=== PATIENT | female | born 1970 | race Caucasian/White ===

== ENCOUNTER 2016-08-16 13:55 | Inpatient (IN) ==
[2016-08-16] MEDS ORDERED: Ondansetron 4 MG/2 ML VIAL IVP ONE (14:29)
[2016-08-16] MEDS ORDERED: 0.9 % Sodium Chloride 1,000 ML IVC ONE ×3 (14:29→19:02)
[2016-08-16] MEDS ORDERED: Acetaminophen 325 MG TABLET PO ONE (14:30)
--- NOTE | 2016-08-16 14:35 | Emergency Department Note ---
Disposition Clinical Impression: ALFA (acute kidney injury) Intractable nausea and vomiting Qualifiers: Vomiting type: unspecified Qualified Code(s): R11.2 - Nausea with vomiting, unspecified Disposition: Admitted As Inpatient Condition: Fair Referrals: NO,PCP [Primary Care Provider] - Forms: Work/School Release, ED Satisfaction Letter Time of Disposition: 17:40 General Adult HPI - General Chief complaint: ED Abdominal Pain Stated complaint: N/V X3 days, abdominal pain Time Seen by Provider: 08/16/16 14:03 Source: patient Limitations: no limitations Nursing Notes Reviewed: Yes Vital Signs Reviewed: Yes - History of Present Illness HPI Narrative: Patient is a 46-year-old female who presents to [facility] ED with multiple complaints. States she has had initially urinary symptoms last weekend and then started having persistent nausea vomiting early this week. States she has been unable to keep anything down. Denies any fevers, chills. Patient did have one episode of diarrhea a few days ago but this was preceded by her taking Ex-Lax. Patient's abdominal pain is in the epigastric region from her vomiting as well as in the lower abdomen. States she does have some chest pain currently at rest along with some shortness of breath. Past medical history significant for hyperlipidemia, hypertension, and CAD. Onset (ago): day(s) Location: chest, abdomen Radiation: non-radiation Pain Severity: severe Pain Scale: 8 Consistency: constant Improves with: nothing Worsens with: nothing Associated symptoms: Reports: chest pain, headaches, nausea/vomiting, shortness of breath Treatments Prior to Arrival: none - Related Data Home Medications Medication Instructions Recorded Confirmed Amitriptyline [Elavil] 10 mg PO HS 06/16/15 06/16/15 Aspirin [Adult Low Dose Aspirin EC] 81 mg PO DAILY 06/16/15 06/16/15 Carvedilol [Coreg] 12.5 mg PO BID 06/16/15 06/16/15 Furosemide [Lasix] 10 mg PO BID 06/16/15 06/16/15 Potassium Chloride [K-Tab ER] 20 meq PO BID 06/16/15 06/16/15 SUMAtriptan Succinate [Imitrex] 100 mg PO AD PRN 06/16/15 06/16/15 Simvastatin [Zocor] 40 mg PO DAILY 06/16/15 06/16/15 Topiramate [Topamax] 50 mg PO HS 06/16/15 06/16/15 Previous Rx's Medication Instructions Recorded Nicotine Patch [Nicoderm] 7 mg TD DAILY #30 patch.td24 06/17/15 Omeprazole [PriLOSEC] 20 mg PO DAILY@0630 #30 capsule 06/17/15 Cyclobenzaprine [Flexeril] 10 mg PO BID PRN #20 tablet 06/06/16 Allergies Allergy/AdvReac Type Severity Reaction Status Date / Time morphine Allergy Hives Verified 01/05/15 06:09 Penicillins [PCN] Allergy Hives Verified 01/05/15 06:09 All systems ED: reviewed and negative except as stated. Past Medical History - Past Medical History Attestation: Yes The following information was validated with the patient. 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 - Social History Smoking Status: Light tobacco smoker Smokeless Tobacco Status: No Alcohol use: Reports: none Drug use: Reports: none Physical Exam - General Limitations: no limitations General appearance: alert - Head Head exam: atraumatic, normocephalic, normal inspection - Eye Eye exam: Present: normal appearance, PERRL, EOMI - ENT ENT exam: normal exam, normal oropharynx, mucous membranes moist - Neck Neck exam: Present: normal inspection, full ROM, trachea midline - Chest Chest inspection: Present: normal inspection, symmetric chest wall rise - Respiratory Respiratory exam: Present: normal lung sounds bilaterally - Cardiovascular Cardiovascular exam: Present: regular rate, normal rhythm, normal heart sounds - Abdominal Exam Abdominal exam: Present: soft, tenderness, normal bowel sounds. Absent: distention, guarding, rebound, rigidity Abdominal tenderness: Present: epigastrium, mild - Extremities Exam Extremities exam: Present: normal inspection, full ROM. Absent: tenderness, pedal edema - Back Exam Back exam: Present: normal inspection, full ROM. Absent: tenderness - Neurological Exam Neurological exam: Present: alert - Psychiatric Psychiatric exam: Present: normal affect, normal mood - Skin Skin exam: Present: warm, dry, intact, normal color Course Course Narrative: Patient seen and examined. Chest pain and abdominal pain along with three-day history of nausea and vomiting. We will order a cardiopulmonary/GI workup. Patient is morbidly obese and has history of CAD. Place an IV and give 1 L fluid bolus and IV Zofran to help with her nausea. Patient also has a headache that has been constant. We will give her Tylenol for the headache. - Reevaluation(s) Reevaluation #1: Patient's lab work does show elevated creatinine of 1.57. This is double her previous creatinine. Patient has received 2 IV fluid boluses as well as doses of Zofran, Phenergan 2. She is still feeling poorly. Unable to tolerate oral liquids. At this time we will go ahead and admit her for continued IV hydration. I spoke with hospitalist Dr. Ferrell who has accepted patient for admission. Time: 17:39 Vital Signs Temperature 98.2 F 08/16/16 13:56 Pulse Rate 79 08/16/16 13:56 Respiratory Rate 14 08/16/16 13:56 Blood Pressure 124/88 08/16/16 13:56 O2 Sat by Pulse Oximetry 97 08/16/16 13:56 Temperature 98.2 F 08/16/16 13:56 Pulse Rate 104 08/16/16 16:40 Respiratory Rate 16 08/16/16 16:40 Blood Pressure 109/76 08/16/16 16:40 O2 Sat by Pulse Oximetry 95 08/16/16 16:40 Oxygen Delivery Oxygen Delivery Room Air Medical Decision Making - Medical Records Medical records reviewed: Yes I reviewed the patient's medical records. - Lab Data Lab results reviewed: Yes I reviewed the patient's lab results. Result diagrams: 08/16/16 14:58 08/16/16 14:58 Lab Results 08/16/16 08/16/16 08/16/16 Range/Units 14:58 14:58 14:58 WBC 14.7 H (4.3-11.1) K/mcL RBC 4.72 (3.82-4.97) M/mcL Hgb 15.0 (11.5-15.4) g/dL Hct 45.5 H (35.3-44.9) % MCV 96.4 (83.0-100.0) fL MCH 31.8 (28.0-33.3) pg MCHC 33.0 (31.6-35.5) g/dL RDW 13.4 (11.5-14.5) % Plt Count 281 (140-400) K/mcL MPV 9.9 (9.4-12.4) fL Immature Gran % 0.5 (0-4) % Seg Neutrophils % 82.7 % Lymphocytes % 7.9 % Monocytes % 8.7 % Eosinophils % 0.1 % Basophils % 0.1 % Neutrophils # 12.1 H (1.6-8.9) K/mcL Lymphocytes # 1.2 (0.6-4.6) K/mcL Monocytes # 1.3 (0.0-1.3) K/mcL Eosinophils # 0.0 (0.0-0.6) K/mcL Basophils # 0.0 (0.0-0.2) K/mcL Sodium 134 L (136-145) mEq/L Potassium 3.5 (3.5-4.5) mEq/L Chloride 95 L (98-109) mEq/L Carbon Dioxide 26 (19-29) mEq/L BUN 15 (7-20) mg/dL Creatinine 1.57 H (0.57-1.11) mg/dL Est GFR ( Amer) 43 L (> 60) Est GFR (Non-Af Amer) 36 L (> 60) BUN/Creatinine Ratio 10 (6-26) Glucose 117 H (70-99) mg/dL Calculated Osmolality 280 (280-300) Calcium 9.3 (8.6-10.8) mg/dL Total Bilirubin 1.5 H (0.2-1.2) mg/dL Direct Bilirubin 0.8 H (0.0-0.5) mg/dL Indirect Bilirubin 0.7 (0.0-1.2) mg/dL AST 12 (5-34) Units/L ALT 11 (0-55) Units/L Alkaline Phosphatase 129 H (38-126) Units/L Troponin I 0.00 (0-0.03) ng/mL Serum Total Protein 7.7 (6.0-8.3) g/dL Albumin 2.9 L (3.5-5.0) g/dL Globulin 4.8 H (2.4-3.5) g/dL Albumin/Globulin Ratio 0.6 L (1.1-2.2) Lipase 5 L (8-78) Units/L Urine Color (Yellow) Urine Clarity (Clear) Urine pH (5.0-8.0) pH Units Ur Specific Garrison (1.010-1.025) Urine Protein (Neg-Trace) mg/dL Urine Glucose (UA) (Normal) mg/dL Urine Ketones (Negative) mg/dL Urine Blood (Negative) Urine Nitrite (Negative) Urine Bilirubin (Negative) Urine Urobilinogen (Normal) mg/dL Ur Leukocyte Esterase (Negative) Urine Microscopic RBC (0-3) per hpf Urine Microscopic WBC (0-3) per hpf Ur Squamous Epith Cells (None-Few) per lpf Amorphous Sediment (Few) Urine Bacteria (None-Few) per hpf Hyaline Casts (None-Few) per lpf Urine Yeast Ur Culture Indicated? (NO) Urine Test (Negative) 08/16/16 08/16/16 Range/Units 16:53 16:53 WBC (4.3-11.1) K/mcL RBC (3.82-4.97) M/mcL Hgb (11.5-15.4) g/dL Hct (35.3-44.9) % MCV (83.0-100.0) fL MCH (28.0-33.3) pg MCHC (31.6-35.5) g/dL RDW (11.5-14.5) % Plt Count (140-400) K/mcL MPV (9.4-12.4) fL Immature Gran % (0-4) % Seg Neutrophils % % Lymphocytes % % Monocytes % % Eosinophils % % Basophils % % Neutrophils # (1.6-8.9) K/mcL Lymphocytes # (0.6-4.6) K/mcL Monocytes # (0.0-1.3) K/mcL Eosinophils # (0.0-0.6) K/mcL Basophils # (0.0-0.2) K/mcL Sodium (136-145) mEq/L Potassium (3.5-4.5) mEq/L Chloride (98-109) mEq/L Carbon Dioxide (19-29) mEq/L BUN (7-20) mg/dL Creatinine (0.57-1.11) mg/dL Est GFR ( Amer) (> 60) Est GFR (Non-Af Amer) (> 60) BUN/Creatinine Ratio (6-26) Glucose (70-99) mg/dL Calculated Osmolality (280-300) Calcium (8.6-10.8) mg/dL Total Bilirubin (0.2-1.2) mg/dL Direct Bilirubin (0.0-0.5) mg/dL Indirect Bilirubin (0.0-1.2) mg/dL AST (5-34) Units/L ALT (0-55) Units/L Alkaline Phosphatase (38-126) Units/L Troponin I (0-0.03) ng/mL Serum Total Protein (6.0-8.3) g/dL Albumin (3.5-5.0) g/dL Globulin (2.4-3.5) g/dL Albumin/Globulin Ratio (1.1-2.2) Lipase (8-78) Units/L Urine Color Dark Yellow (Yellow) Urine Clarity Turbid A (Clear) Urine pH 6.0 (5.0-8.0) pH Units Ur Specific Garrison 1.018 (1.010-1.025) Urine Protein 100 H (Neg-Trace) mg/dL Urine Glucose (UA) Normal (Normal) mg/dL Urine Ketones Trace H (Negative) mg/dL Urine Blood Large H (Negative) Urine Nitrite Positive A (Negative) Urine Bilirubin Small H (Negative) Urine Urobilinogen 2.0 H (Normal) mg/dL Ur Leukocyte Esterase Large H (Negative) Urine Microscopic RBC 30-50 H (0-3) per hpf Urine Microscopic WBC TNTC H (0-3) per hpf Ur Squamous Epith Cells Moderate H (None-Few) per lpf Amorphous Sediment Few (Few) Urine Bacteria Many H (None-Few) per hpf Hyaline Casts Few (None-Few) per lpf Urine Yeast Test Not Performed Ur Culture Indicated? YES A (NO) Urine Test Negative (Negative) - Radiology Data Radiology results reviewed: Yes I reviewed the patient's radiology results. - EKG Data EKG #1 EKG attestation: Yes I reviewed and interpreted this EKG. EKG results narrative: EKG done at 1434 shows sinus tachycardia with a rate of 120 beats per minute. No acute ST elevation or depression. Normal axis. Unchanged from prior EKG done 06/16/2015. Attestation Statement - Attestation Attestation: I examined this patient and my medical decision-making was reviewed with the PROJECT CONTROL MANAGER/PA/Advanced Practice Nurse/Resident Physician. I agree with the documented findings, disposition and treatment plan as described except to the extent set forth below. Patient with some signs of dehydration on clinical exam as well as with lab work. I have ordered some IV fluids. She will need at least 2 L of fluid here in the ER. We will reevaluate at that time to see how she is feeling.
[2016-08-16] MEDS ORDERED: Ipratropium/Albuterol Neb 3 ML IH ONE (14:44)
--- NOTE | 2016-08-16 14:46 | Emergency Department Note ---
START Narrative - START START: I examined this patient and my medical decision-making was reviewed with the SALES UTILITY REPRESENTATIVE/PA/Advanced Practice Nurse/Resident Physician. I agree with the documented findings, disposition and treatment plan as described except to the extent set forth below.
[2016-08-16 15:04] LABS: Basophils % 0.1 %; Eosinophils % 0.1 %; Hematocrit 45.5 % (35.3-44.9); Immature Granulocytes % 0.5 % (0-4); Lymphocytes # 1.2 K/mcL (0.6-4.6); Lymphocytes % 7.9 %; Mean Corpuscular Hemoglobin 31.8 pg (28.0-33.3); Mean Corpuscular Volume 96.4 fL (83.0-100.0); Mean Platelet Volume 9.9 fL (9.4-12.4); Monocytes # 1.3 K/mcL (0.0-1.3); Monocytes % 8.7 %; Neutrophils # 12.1 K/mcL (1.6-8.9); Platelet Count 281 K/mcL (140-400); Red Blood Count 4.72 M/mcL (3.82-4.97); Red Cell Distribution Width 13.4 % (11.5-14.5); Segmented Neutrophils % 82.7 %
[2016-08-16 15:18] LABS: Albumin 2.9 g/dL (3.5-5.0); Albumin/Globulin Ratio 0.6 (1.1-2.2); Bilirubin,Direct 0.8 mg/dL (0.0-0.5); Bilirubin,Indirect 0.7 mg/dL (0.0-1.2); Bilirubin,Total 1.5 mg/dL (0.2-1.2); Calcium 9.3 mg/dL (8.6-10.8); Globulin 4.8 g/dL (2.4-3.5); Potassium 3.5 mEq/L (3.5-4.5); Total Protein 7.7 g/dL (6.0-8.3)
[2016-08-16] MEDS ORDERED: *HR* Promethazine 25 MG/ML VIAL IVP ONE (15:28)
[2016-08-16] MEDS ORDERED: *HR* HYDROcodone/Acet 5/325 mg TABLET PO ONE (15:28)
[2016-08-16 17:05] LABS: Bilirubin,Urine Small (Negative); Blood,Urine Large (Negative); Clarity,Urine Turbid (Clear); Color,Urine Dark Yellow (Yellow); Glucose,Urine (UA) Normal (Normal); Ketones,Urine Trace mg/dL (Negative); Leukocyte Esterase,Urine Large (Negative); Nitrite,Urine Positive (Negative); Protein,Urine 100 mg/dL (Neg-Trace); Specific Gravity,Urine 1.018 (1.010-1.025)
[2016-08-16 17:08] LABS: Bacteria,Urine Many per hpf (None-Few); Hyaline Casts,Urine Few per lpf (None-Few); WBC,Urine TNTC per hpf (0-3)
[2016-08-16 17:17] LABS: Squamous Epithelial Cell,Urine Moderate per lpf (None-Few)
[2016-08-16 17:18] LABS: RBC,Urine 30-50 per hpf (0-3)
[2016-08-16 17:19] LABS: Amorphous Sediment,Urine Few (Few)
[2016-08-16] MEDS ORDERED: 0.9 % Sodium Chloride 1,000 ML ONE (18:37)
[2016-08-16] MEDS ORDERED: Ondansetron 4 MG/2 ML VIAL IVP PRN (18:50)
[2016-08-16] MEDS ORDERED: *HR* Promethazine 25 MG/ML VIAL IVP PRN (18:50)
[2016-08-16] MEDS ORDERED: *HR* HYDROcodone/Acet 7.5/325 mg TABLET PO PRN (18:53)
[2016-08-16] MEDS ORDERED: Naloxone 0.4 MG/ML INJ IVP PRN (18:54)
[2016-08-16] MEDS ORDERED: Levofloxacin 750 MG/150 ML 750 MG/150 ML BAG IVPB SCH (19:00)
[2016-08-16] MEDS ORDERED: Acetaminophen 325 MG TABLET PO PRN (19:08)
--- NOTE | 2016-08-16 19:15 | Internal Med History&Physical ---
Date of Encounter: 08/16/16 Time of Encounter: 18:40 Assessment and Plan (1) Sepsis Current visit: Yes Status: Acute Source appears to be secondary to UTI with suspected pyelonephritis. CT abdomen and pelvis is ordered and pending. Patient states that her blood pressure normally runs in the 200s systolic, thus her systolic BP which is currently running in the 90s despite fluid resuscitation is very concerning. Patient also found to be tachycardic with heart rate in the 1 teens and a white count of 14.7. We will continue to provide fluid resuscitation and order Levaquin 750 every 24 hours as the patient is allergic to penicillins. Will follow up urine and blood cultures. Check a lactic acid as this was not performed in the ED. Qualifiers: Sepsis type: sepsis due to unspecified organism Qualified Code(s): A41.9 - Sepsis, unspecified organism (2) ALFA (acute kidney injury) Current visit: Yes Status: Acute Patient's baseline renal function is approximately 0.7. Today is 1.5 and correlates with intractable nausea and vomiting and septic picture. Continue fluid resuscitation and recheck renal function the morning. (3) UTI (urinary tract infection) Current visit: Yes Status: Acute Although the specimen appears to be contaminated, given markedly elevated WBCs, positive nitrate and leukocyte esterase, will treat with Levaquin as mentioned above. CT scan pending to evaluate for possible pyelonephritis. Qualifiers: Urinary tract infection type: acute pyelonephritis Qualified Code(s): N10 - Acute pyelonephritis (4) Intractable nausea and vomiting Current visit: Yes Status: Acute This appears to have resolved as patient has been able to tolerate by mouth medications in the ED. This is likely secondary to sepsis with UTI. Despite elevated bilirubin, patient has no right upper quadrant tenderness. We will continue to monitor LFTs. Continue Zofran and Phenergan as needed for nausea. Qualifiers: Vomiting type: unspecified Qualified Code(s): R11.2 - Nausea with vomiting , unspecified (5) Chest pain of unknown etiology Current visit: No Status: Acute Patient states that she developed substernal/epigastric chest pressure. She relates this to the intractable nausea and vomiting. The pain was reproducible upon palpation. EKG revealed nonspecific ischemic changes. Will trend troponins , but will not order any further cardiac testing given patient's septic picture at this time. Will defer such testing until patient is no longer septic. Internal Medicine - H&P: HPI Chief complaint: Abdominal pain, nausea and vomiting, burning on urination Admitted From: Home History of present illness: Ms. Chester is a 46 year old female with past medical history chronic headaches , hyperlipidemia, tobacco abuse, CAD who presents to [facility] with complaints of intractable nausea and vomiting, dysuria, abdominal pain. Patient's symptoms started extremity is ago; she developed a subjective fever followed by profuse sweating on days 1 and 2 but this has resolved. She subsequently developed burning on urination without the presence of foul- smelling urine or cloudy urine. She has suprapubic discomfort. She has not been able to tolerate by mouth in the last 4 days and has been vomiting clear bilious type fluid many times per day. She came in because she knew she was dehydrated. No hematemesis or coffee-ground emesis. No mention of diarrhea. No unusual vaginal discharge and last menstrual period has been over a year. She claims that she does have a headache rated 10 out of 10, but admits that this is constant and has been going on for many months. She is admits to photophobia and phonophobia. She claims that she always has neck pain due to her degenerative disc disease. Past Med Surg Social Fam HX - Past Medical History Source: patient Medical history: coronary artery disease, CVA, hyperlipidemia, hypertension, migraine, myocardial infarction, TIA Psychiatric history: no psych history - Past Surgical History Surgical History: appendectomy, cholecystectomy, other - Social History Smoking Status: Light tobacco smoker Smokeless Tobacco Status: No Alcohol use: none Drug use: none - Family History Mother Living Status: Still Living Hx Family Cardiac Disorders: No Hx Family Respiratory Disorders: No Hx Family Cancer: No Hx Family GI Disorders: No Hx Family Genitourinary Disorders: No Hx Family Endocrine Disorder: No Hx Family Musculoskeletal Disorders: Yes (MS) Hx Family Neuromuscular Disorders: No Hx Family Neurologic Disorders: No Hx Family HEENT Disorders: No Hx Family Autoimmune Disorders: No Hx Family Reproductive Disorders: No Hx Family Psychosocial Disorders: No Hx Family Medical Disorders: No Father Living Status: Age at : 48 Cause of : [place] Hx Family Cardiac Disorders: Yes Hx Family Respiratory Disorders: Yes Hx Family Cancer: No Hx Family GI Disorders: No Hx Family Genitourinary Disorders: No Hx Family Endocrine Disorder: No Hx Family Musculoskeletal Disorders: No Hx Family Neuromuscular Disorders: No Hx Family Neurologic Disorders: No Hx Family HEENT Disorders: No Hx Family Autoimmune Disorders: No Hx Family Reproductive Disorders: No Hx Family Psychosocial Disorders: No Hx Family Medical Disorders: No Maternal History Unknown: Yes Internal Medicine - H&P: Meds Amitriptyline [Elavil] 10 mg PO HS 06/16/15 [History] Aspirin [Adult Low Dose Aspirin EC] 81 mg PO DAILY 06/16/15 [History] Carvedilol [Coreg] 12.5 mg PO BID 06/16/15 [History] Furosemide [Lasix] 10 mg PO BID 06/16/15 [History] Potassium Chloride [K-Tab ER] 20 meq PO BID 06/16/15 [History] SUMAtriptan Succinate [Imitrex] 100 mg PO AD PRN 06/16/15 [History] Simvastatin [Zocor] 40 mg PO DAILY 06/16/15 [History] Topiramate [Topamax] 50 mg PO HS 06/16/15 [History] Nicotine Patch [Nicoderm] 7 mg TD DAILY #30 patch.td24 06/17/15 [Rx] Omeprazole [PriLOSEC] 20 mg PO DAILY@0630 #30 capsule 06/17/15 [Rx] Cyclobenzaprine [Flexeril] 10 mg PO BID PRN #20 tablet 06/06/16 [Rx] Allergies morphine Allergy (Verified 01/05/15 06:09) Hives Penicillins [PCN] Allergy (Verified 01/05/15 06:09) Hives All Systems PM: A 10-system review of systems was performed and is negative for pertinent findings except as documented above in the HPI. - Constitutional Constitutional: as per HPI, malaise - EENT Eyes: photophobia, no blurry vision - Cardiovascular Cardiovascular ROS IM: chest pain (which she relates to her nausea and vomiting) , lightheadedness, no dyspnea - Respiratory Respiratory: no cough, no hemoptysis - Gastrointestinal Gastrointestinal: as per HPI, abdominal pain, bloating - Genitourinary Genitourinary: as per HPI - Neurological Neurological ROS: as per HPI - Constitutional Vitals: Temp Pulse Resp BP Pulse Ox 98.2 F 104 16 93/71 95 08/16/16 13:56 08/16/16 16:40 08/16/16 18:00 08/16/16 18:00 08/16/16 16:40 General appearance: Present: A&O X 3, pleasant, no acute distress, obese, answers questions appropriately - Head Head exam: Present: atraumatic, normal inspection - Eye Eye exam: Present: EOMI, PERRL Pupils: Present: normal accommodation - ENT ENT exam: Present: mucous membranes dry - Respiratory Respiratory exam: Present: CTAB - Cardiovascular Cardiovascular exam: Present: +S1, +S2 Additional comments: tachycardic - GI/Abdominal GI/Abdominal exam: Present: normal bowel sounds, soft, no peritoneal signs. Absent: guarding, tenderness Additional comments: +CVA tenderness on left - Extremities Exam Extremities exam: Absent: pedal edema ( ) - Psychiatric Psychiatric exam: Present: normal affect, normal mood - Skin Skin exam: Absent: rash Internal Med - H&P Results - Labs CBC & Chem 7: 08/16/16 14:58 08/16/16 14:58
[2016-08-16] MEDS: Topiramate 25 MG TABLET PO SCH (20:30)
[2016-08-16] MEDS: 0.9 % Sodium Chloride 1,000 ML IVC SCH (21:09)
[2016-08-16] MEDS: Pantoprazole 40 MG VIAL IVP SCH (21:31)
[2016-08-17 01:00] LABS: INR 1.5; Prothrombin Time 16.9 Seconds (9.4-12.1)
[2016-08-17 01:03] LABS: Activated Partial Thrombo Time 26.9 Seconds (26.0-36.0)
[2016-08-17] MEDS ORDERED: 0.9 % Sodium Chloride 1,000 ML ONE (04:44)
[2016-08-17] MEDS: 0.9 % Sodium Chloride 1,000 ML IVC SCH ×2 (06:13→18:13)
[2016-08-17] MEDS: *HR* Heparin 5,000 UNIT/ML VIAL SQ SCH ×2 (06:13→16:17)
[2016-08-17] MEDS: Aspirin Enteric Coated 81 MG Tablet PO SCH (07:21)
[2016-08-17] MEDS: Pantoprazole 40 MG VIAL IVP SCH (07:21)
[2016-08-17] MEDS ORDERED: Acetaminophen 325 MG TABLET PO PRN (08:51)
[2016-08-17] MEDS: *HR* OxyCODONE/APAP 5/325 TABLET PO PRN ×2 (09:04→18:12)
[2016-08-17 10:06] LABS: Acinetobacter baumannii by PCR Not Detected (Not Detect); Candida albicans by PCR Not Detected (Not Detect); Candida glabrata by PCR Not Detected (Not Detect); Candida krusei by PCR Not Detected (Not Detect); Candida parapsilosis by PCR Not Detected (Not Detect); Candida tropicalis by PCR Not Detected (Not Detect); Enterococcus by PCR Not Detected (Not Detect); Escherichia coli by PCR ***DETECTED*** (Not Detect); Klebsiella oxytoca by PCR Not Detected (Not Detect); Klebsiella pneumoniae by PCR Not Detected (Not Detect); Pseudomonas aeruginosa by PCR Not Detected (Not Detect); Serratia marcescens by PCR Not Detected (Not Detect); Staphylococcus aureus by PCR Not Detected (Not Detect); Streptococcus agalactiae(B)PCR Not Detected (Not Detect); Streptococcus by PCR Not Detected (Not Detect); Streptococcus pneumoniae PCR Not Detected (Not Detect); Streptococcus pyogenes (A) PCR Not Detected (Not Detect); blaKPC Carbapenem-Resist Gene Not Detected (Not Detect); mecA Methicillin-Resist Gene Not Detected (Not Detect); vanA/B Vancomycin-Resist Genes Not Detected (Not Detect)
--- NOTE | 2016-08-17 10:06 | Electrocardiograph Report ---
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 : 1970 Requested By: Annika Phipps Order Number: [id number] Reading MD: Mitesh Stallings MD Measurements Intervals [place] Rate: 120 P: 33 VT: 144 QRS: 21 QRSD: 86 T: 45 QT: 293 QTc: 364 Interpretive Statements SINUS TACHYCARDIA Electronically Signed On 08-17-2016 10:04:52 EDT by Mitesh Stallings MD
--- NOTE | 2016-08-17 10:13 | Internal Med Progress Note ---
Date of Encounter: 08/17/16 Time of Encounter: 09:45 - Assessment and plan (1) Sepsis Current Visit: Yes Status: Acute Assessment and plan: Patient with sepsis from acute pyelonephritis. Blood cultures positive for gram -negative rods possibly Escherichia coli per PCR. Await sensitivity results. Will repeat blood cultures. Continue levofloxacin. High-risk for complications Qualifiers: Sepsis type: Escherichia coli Qualified Code(s): A41.51 - Sepsis due to Escherichia coli [E. coli] (2) Acute pyelonephritis Current Visit: Yes Status: Acute Assessment and plan: CT of the abdomen and pelvis shows bilateral perinephric fat stranding concerning for pyelonephritis. (3) ALFA (acute kidney injury) Current Visit: Yes Status: Acute Assessment and plan: Continue IV hydration. Will follow renal function. (4) Chest pain of uncertain etiology Current Visit: No Status: Acute Assessment and plan: Does not report any substernal pain or epigastric pain today but does have left costovertebral pain. Requesting pain medication. O[facility] shows no prior prescriptions for pain medications. We will use oral medications to control her pain for now. (5) Intractable nausea and vomiting Current Visit: Yes Status: Acute Assessment and plan: Improving. Patient's nausea is likely due to acute pyelonephritis. Continue antiemetics as needed Qualifiers: Vomiting type: unspecified Qualified Code(s): R11.2 - Nausea with vomiting , unspecified - Subjective Interval history: Patient continues to have left flank and costovertebral pain. Requesting pain medication and states that she takes Percocet at home. No fever reported overnight. Does complain of chills. No nausea or vomiting today. - Constitutional Vitals: Temp Pulse Resp BP Pulse Ox 98.1 F 87 18 105/72 97 08/17/16 07:38 08/17/16 07:38 08/17/16 07:38 08/17/16 07:38 08/17/16 07:38 General appearance: Present: A&O X 3, pleasant, no acute distress, obese, answers questions appropriately - Respiratory Respiratory exam: Present: CTAB. Absent: accessory muscle use, rales, rhonchi, wheezes - Cardiovascular Cardiovascular exam: Present: RRR, +S1, +S2. Absent: diastolic murmur, gallop, rubs, systolic murmur - GI/Abdominal GI/Abdominal exam: Present: normal bowel sounds, soft, no peritoneal signs. Absent: distended, tenderness Additional comments: Tenderness in the left costovertebral region - Extremities Exam Extremities exam: Present: warm, radial pulses palpable and symetrical. Absent : calf tenderness, cyanotic, pedal edema - Back Exam Back exam: Present: CVA tenderness (L) - Skin Skin exam: Present: dry, intact Internal Medicine: Result - Labs CBC & Chem 7: 08/16/16 14:58 08/16/16 14:58 Labs: Cardiac Enzymes 08/17/16 08/17/16 Range/Units 00:46 04:33 Troponin I 0.01 0.01 (0-0.03) ng/mL - ABG Interpretation ABG results: PT/INR, D-dimer PT 16.9 Seconds (9.4-12.1) H 08/17/16 00:46 - Impressions Impressions Abdomen/Pelvis CT 08/16/16 22:00 IMPRESSION: Bilateral perinephric fat stranding, nonspecific though can be seen with urinary tract infection/ pyelonephritis. Recommend correlation with urinary analysis. 2 mm nonobstructing left nephrolithiasis. D/ / Oscar Witt MD / Oscar Witt MD Interpreting Provider: Oscar Witt MD Consult Discharge Plan - Plan Referrals: NO,PCP [Primary Care Provider] - - Attending Attestation This document has been at least partially created by [employer] recognition technology by Dr. Tinsley. Errors in grammar, wording or other phrases may exist. If errors are found after the documentation is signed, they will be addressed individually in the addendum section of this document when appropriate.
[2016-08-17 10:25] LABS: Basophils % 0.1 %; Eosinophils # 0.1 K/mcL (0.0-0.6); Eosinophils % 0.4 %; Hematocrit 36.7 % (35.3-44.9); Immature Granulocytes % 0.8 % (0-4); Lymphocytes # 0.7 K/mcL (0.6-4.6); Lymphocytes % 5.6 %; Mean Corpuscular HGB Conc 32.7 g/dL (31.6-35.5); Mean Corpuscular Hemoglobin 31.8 pg (28.0-33.3); Mean Corpuscular Volume 97.3 fL (83.0-100.0); Mean Platelet Volume 10.4 fL (9.4-12.4); Monocytes # 0.9 K/mcL (0.0-1.3); Monocytes % 7.3 %; Neutrophils # 10.5 K/mcL (1.6-8.9); Platelet Count 232 K/mcL (140-400); Red Blood Count 3.77 M/mcL (3.82-4.97); Red Cell Distribution Width 13.9 % (11.5-14.5); Segmented Neutrophils % 85.8 %
[2016-08-17 10:56] LABS: BUN/Creatinine Ratio 12 (6-26); Blood Urea Nitrogen 13 mg/dL (7-20); Carbon Dioxide 20 mEq/L (19-29); Chloride 110 mEq/L (98-109); Glucose 112 mg/dL (70-99); Osmolality,Calculated 289 (280-300); Potassium 3.7 mEq/L (3.5-4.5); Sodium 139 mEq/L (136-145); eGFR For African Americans > 60 (> 60); eGFR For Non-African Americans 55 (> 60)
[2016-08-17 10:57] LABS: Calcium 7.5 mg/dL (8.6-10.8)
[2016-08-17] MEDS: Topiramate 25 MG TABLET PO SCH (21:44)
[2016-08-18] MEDS: 0.9 % Sodium Chloride 1,000 ML IVC SCH ×2 (01:18→09:44)
[2016-08-18] MEDS: *HR* OxyCODONE/APAP 5/325 TABLET PO PRN ×2 (01:24→09:41)
[2016-08-18] MEDS: *HR* Heparin 5,000 UNIT/ML VIAL SQ SCH (05:22)
[2016-08-18 06:24] LABS: Basophils % 0.1 %; Eosinophils # 0.3 K/mcL (0.0-0.6); Eosinophils % 3.6 %; Hematocrit 35.3 % (35.3-44.9); Hemoglobin 11.5 g/dL (11.5-15.4); Immature Granulocytes % 0.5 % (0-4); Lymphocytes % 10.9 %; Mean Corpuscular HGB Conc 32.6 g/dL (31.6-35.5); Mean Corpuscular Hemoglobin 31.4 pg (28.0-33.3); Mean Corpuscular Volume 96.4 fL (83.0-100.0); Mean Platelet Volume 10.4 fL (9.4-12.4); Monocytes # 0.6 K/mcL (0.0-1.3); Monocytes % 6.7 %; Neutrophils # 6.9 K/mcL (1.6-8.9); Platelet Count 231 K/mcL (140-400); Red Blood Count 3.66 M/mcL (3.82-4.97); Red Cell Distribution Width 14.1 % (11.5-14.5); Segmented Neutrophils % 78.2 %
[2016-08-18 06:41] LABS: BUN/Creatinine Ratio 8 (6-26); Blood Urea Nitrogen 8 mg/dL (7-20); Calcium 7.7 mg/dL (8.6-10.8); Carbon Dioxide 21 mEq/L (19-29); Chloride 109 mEq/L (98-109); Glucose 121 mg/dL (70-99); Osmolality,Calculated 282 (280-300); Potassium 2.9 mEq/L (3.5-4.5); Sodium 136 mEq/L (136-145); eGFR For African Americans > 60 (> 60); eGFR For Non-African Americans 58 (> 60)
[2016-08-18] MEDS: Aspirin Enteric Coated 81 MG Tablet PO SCH (09:37)
[2016-08-18 11:03] VITALS: BP 98/65
--- NOTE | 2016-08-18 13:04 | Discharge Summary ---
Date of Encounter: 08/18/16 Time of Encounter: 11:30 - Discharge Diagnosis (1) Acute pyelonephritis Status: Acute (2) Sepsis Status: Acute Qualifiers: Sepsis type: Escherichia coli Qualified Code(s): A41.51 - Sepsis due to Escherichia coli [E. coli] (3) COPD (chronic obstructive pulmonary disease) Status: Acute (4) Tobacco abuse Status: Acute (5) ALFA (acute kidney injury) Status: Acute (6) UTI (urinary tract infection) Status: Acute Qualifiers: Urinary tract infection type: acute pyelonephritis Qualified Code(s): N10 - Acute pyelonephritis - Discharge Medications Home Medications: Carvedilol [Coreg] 25 mg PO BID 06/16/15 [History] Aspirin [Aspirin] 81 mg PO DAILY 08/17/16 [History] Isosorbide MONOnitrate (24 HR) [Imdur] 30 mg PO DAILY 08/17/16 [History] Nitroglycerin 0.4 mg PO Q5M PRN 08/17/16 [History] Allergies/Adverse Reactions: Allergies morphine Allergy (Verified 08/17/16 08:26) Hives Penicillins [PCN] Allergy (Verified 08/17/16 08:26) Hives Date of admission: 08/16/16 21:47 Primary care physician: PCP NO Discharging clinician: Fozia Del Angel Anticipated date of discharge: 08/18/16 - Patient Status Condition: Fair - Discharge Instructions Follow Up With: NO,PCP [Primary Care Provider] - Hospital course: Ms. Chester is a 46 year old female - Time Spent with Patient Total time spent providing and/or coordinating discharge services: - Constitutional Vitals: Temp Pulse Resp BP Pulse Ox 99.4 F 89 18 98/65 96 08/18/16 10:59 08/18/16 10:59 08/18/16 10:59 08/18/16 10:59 08/18/16 10:59 General appearance: Present: A&O X 3, pleasant, no acute distress, obese, answers questions appropriately
--- NOTE | 2016-08-19 17:15 | Discharge Summary ---
Date of Encounter: 08/18/16 Time of Encounter: 11:30 - Discharge Diagnosis (1) Acute pyelonephritis Priority: Primary Status: Acute (2) Sepsis Priority: Primary Status: Acute Qualifiers: Sepsis type: Escherichia coli Qualified Code(s): A41.51 - Sepsis due to Escherichia coli [E. coli] (3) COPD (chronic obstructive pulmonary disease) Priority: Secondary Status: Chronic Qualifiers: COPD type: unspecified COPD Qualified Code(s): J44.9 - Chronic obstructive pulmonary disease, unspecified (4) Tobacco abuse Priority: Secondary Status: Chronic (5) ALFA (acute kidney injury) Priority: Primary Status: Acute (6) UTI (urinary tract infection) Priority: Primary Status: Acute Qualifiers: Urinary tract infection type: acute pyelonephritis Qualified Code(s): N10 - Acute pyelonephritis (7) Gram-negative bacteremia Priority: Primary Status: Acute - Discharge Medications Home Medications: Carvedilol [Coreg] 25 mg PO BID 06/16/15 [History] Aspirin [Aspirin] 81 mg PO DAILY 08/17/16 [History] Isosorbide MONOnitrate (24 HR) [Imdur] 30 mg PO DAILY 08/17/16 [History] Nitroglycerin 0.4 mg PO Q5M PRN 08/17/16 [History] Allergies/Adverse Reactions: Allergies morphine Allergy (Verified 08/17/16 08:26) Hives Penicillins [PCN] Allergy (Verified 08/17/16 08:26) Hives Date of admission: 08/16/16 21:47 Primary care physician: Peter Shabazz Discharging clinician: Fozia Del Angel Anticipated date of discharge: 08/18/16 - Patient Status Disposition: Left Against Medical Advice Condition: Fair Functional capacity at discharge: independent ambulation - Discharge Instructions Follow Up With: NO,PCP [Non-Partnered Physician] - Hospital course: Ms. Chester is a 46 year old female with history of COPD, CHF, hypertension who was admitted with nausea, vomiting and abdominal pain. Patient was noted to have UTI. CT abdomen/pelvis showed bilateral pyelonephritis and she was noted to have sepsis secondary to UTI, present on admission. She was started on IV Rocephin along with aggressive IV hydration. She also had fever and leukocytosis, which began to improve with antibiotics. Urine and blood cultures currently gram-negative rods and she would benefit from further IV antibiotics, repeat blood cultures and adjustment of antibiotics according to sensitivities. However, patient reports family issues at home which need her immediate Attention and after being explained the risks of leaving the hospital today, she insisted on signing out AGAINST MEDICAL ADVICE. She is being provided with a prescription for Omnicef to complete a 14 day course of antibiotics for septicemia. - Time Spent with Patient Total time spent providing and/or coordinating discharge services: Greater than 30 minutes (45 minutes) - Constitutional Vitals: Temp Pulse Resp BP Pulse Ox 99.4 F 89 18 98/65 96 08/18/16 10:59 08/18/16 10:59 08/18/16 10:59 08/18/16 10:59 08/18/16 10:59 General appearance: Present: A&O X 3, answers questions appropriately - Respiratory Respiratory exam: Present: CTAB. Absent: accessory muscle use, rales, rhonchi, wheezes - Cardiovascular Cardiovascular exam: Present: RRR, +S1, +S2. Absent: diastolic murmur, gallop, rubs, systolic murmur
== END 2016-08-18 13:11 | disposition left against medical advice (07) | DRG 720 ==
LOC: EMEROO 13:55 → 3BNU 13:55 → SUATTDRO 21:47 → 2ANU 08-17 02:12
PROVIDERS: ADMIT Internal Medicine; ATTEND Internal Medicine

== ENCOUNTER 2021-04-24 21:29 | Inpatient (IN) ==
[2021-04-24] MEDS ORDERED: Isovue-370 500 ML BOTTLE IVP ONE (21:33)
[2021-04-24 21:50] LABS: Hematocrit 44.9 % (35.3-44.9); Hemoglobin 14.6 g/dL (11.5-15.4); Mean Corpuscular HGB Conc 32.5 g/dL (31.6-35.5); Mean Corpuscular Hemoglobin 31.6 pg (28.0-33.3); Mean Corpuscular Volume 97.2 fL (83.0-100.0); Mean Platelet Volume 10.4 fL (9.4-12.4); Platelet Count 296 K/mcL (140-400); Red Blood Count 4.62 M/mcL (3.82-4.97); Red Cell Distribution Width 12.9 % (11.5-14.5); White Blood Count 8.4 K/mcL (4.3-11.1)
[2021-04-24 22:02] LABS: Activated Partial Thrombo Time 31.4 Seconds (26.0-36.0); INR 0.9; Prothrombin Time 10.5 Seconds (9.4-12.1)
[2021-04-24 22:14] LABS: BUN/Creatinine Ratio 9 (6-26); Blood Urea Nitrogen 8 mg/dL (6-20); Calcium 9.5 mg/dL (8.6-10.3); Carbon Dioxide 28 mEq/L (23-29); Chloride 105 mEq/L (98-107); Glucose 105 mg/dL (70-105); Magnesium 1.8 mg/dL (1.6-2.6); Osmolality,Calculated 291 (280-300); Potassium 3.5 mEq/L (3.5-5.1); Sodium 141 mEq/L (136-145); Troponin I < 0.03 ng/mL (< 0.04); eGFR For African Americans > 60 (> 60); eGFR For Non-African Americans > 60 (> 60)
[2021-04-25] MEDS ORDERED: Aspirin 81 MG TAB.CHEW PO STA (00:37)
[2021-04-25] MEDS ORDERED: Aspirin 81 MG TAB.CHEW PO ONE (00:45)
[2021-04-25] MEDS ORDERED: *HR* Promethazine 25 MG/ML VIAL IM PRN (01:08)
[2021-04-25] MEDS ORDERED: Ondansetron 4 MG/2 ML VIAL IVP PRN (01:08)
[2021-04-25] MEDS ORDERED: Naloxone 0.4 MG/ML INJ IVP PRN (01:08)
[2021-04-25] MEDS ORDERED: Perflutren Lipid Microsphere 1.3 ML in 0.9 % Sodium Chloride 8.7 ML IVP PRN (01:10)
[2021-04-25] MEDS ORDERED: Gadolinium Contrast Agent (WT Based) IV PRN (01:10)
[2021-04-25] MEDS ORDERED: Ipratropium/Albuterol Neb 3 ML IH PRN (01:12)
[2021-04-25] MEDS ORDERED: methylPREDNISolone 125 MG/2 ML VIAL IVP ONE (01:30)
[2021-04-25 02:49] LABS: Influenza A PCR Negative (Negative); Influenza B PCR Negative (Negative); Resp. Syncytial Virus PCR Negative (Negative)
[2021-04-25 02:56] LABS: SARS-CoV-2 by PCR (In House) Positive (Negative)
[2021-04-25] MEDS ORDERED: Ipratropium/Albuterol Neb 3 ML IH SCH (04:00)
[2021-04-25] MEDS ORDERED: Ipratropium Neb 0.5 MG NEBULIZER ONE (04:42)
[2021-04-25 04:56] LABS: Basophils % 0.4 %; Eosinophils # 0.3 K/mcL (0.0-0.6); Eosinophils % 3.7 %; Hematocrit 43.3 % (35.3-44.9); Immature Granulocytes % 0.1 % (0-4); Lymphocytes # 2.5 K/mcL (0.6-4.6); Mean Corpuscular HGB Conc 32.3 g/dL (31.6-35.5); Mean Corpuscular Hemoglobin 31.1 pg (28.0-33.3); Mean Corpuscular Volume 96.2 fL (83.0-100.0); Mean Platelet Volume 11.1 fL (9.4-12.4); Monocytes # 0.5 K/mcL (0.0-1.3); Monocytes % 7.3 %; Neutrophils # 3.8 K/mcL (1.6-8.9); Platelet Count 254 K/mcL (140-400); Red Cell Distribution Width 13.1 % (11.5-14.5); Segmented Neutrophils % 53.5 %
[2021-04-25 04:58] LABS: INR 0.9; Prothrombin Time 10.2 Seconds (9.4-12.1)
[2021-04-25 05:13] LABS: Alanine Aminotransferase 20 Units/L (7-52); Albumin 3.9 g/dL (3.5-5.7); Albumin/Globulin Ratio 1.4 (1.1-2.2); Alkaline Phosphatase 69 Units/L (34-104); Aspartate Amino Transferase 19 Units/L (13-39); BUN/Creatinine Ratio 10 (6-26); Bilirubin,Total 0.3 mg/dL (0.3-1.0); Blood Urea Nitrogen 8 mg/dL (6-20); Calcium 9.1 mg/dL (8.6-10.3); Carbon Dioxide 26 mEq/L (23-29); Chloride 106 mEq/L (98-107); Cholesterol 204 mg/dL (< 200); Globulin 2.7 g/dL (2.4-3.5); Glucose 94 mg/dL (70-105); HDL Cholesterol 51 mg/dL (40-59); LDL Cholesterol,Calculated 137 mg/dL (< 100); Magnesium 1.9 mg/dL (1.6-2.6); Osmolality,Calculated 288 (280-300); Phosphorous 3.4 mg/dL (2.7-4.5); Potassium 3.6 mEq/L (3.5-5.1); Sodium 140 mEq/L (136-145); Total Protein 6.6 g/dL (6.4-8.9); Triglycerides 79 mg/dL (< 150); Troponin I < 0.03 ng/mL (< 0.04); eGFR For African Americans > 60 (> 60); eGFR For Non-African Americans > 60 (> 60)
[2021-04-25] MEDS: *HR* Enoxaparin 40 MG/0.4 ML SYRINGE SQ SCH (05:39)
[2021-04-25 06:03] LABS: Estimated Average Glucose 120 mg/dl; Hemoglobin A1C 5.8 %
[2021-04-25] MEDS ORDERED: *HR* LORazepam 0.5 MG TABLET PO ONE ×2 (06:47→19:57)
[2021-04-25] MEDS: Aspirin Enteric Coated 81 MG Tablet PO SCH (07:38)
[2021-04-25] MEDS: Acetaminophen 325 MG TABLET PO PRN ×2 (07:38→20:17)
[2021-04-25] MEDS: Ipratropium 1 PUFF INHALER IH SCH ×3 (08:04→20:22)
[2021-04-25] MEDS ORDERED: dexAMETHasone 4 MG TABLET PO SCH (09:00)
[2021-04-25] MEDS ORDERED: predniSONE 20 MG TABLET PO SCH (09:00)
[2021-04-25] MEDS: tiZANidine 4 MG TABLET PO SCH (20:16)
[2021-04-26] MEDS: Ipratropium 1 PUFF INHALER IH SCH ×4 (03:49→20:36)
[2021-04-26] MEDS: *HR* Enoxaparin 40 MG/0.4 ML SYRINGE SQ SCH (05:05)
[2021-04-26 07:18] LABS: Basophils % 0.1 %; Eosinophils # 0.1 K/mcL (0.0-0.6); Eosinophils % 0.6 %; Hematocrit 41.1 % (35.3-44.9); Hemoglobin 13.4 g/dL (11.5-15.4); Immature Granulocytes % 0.3 % (0-4); Lymphocytes # 2.3 K/mcL (0.6-4.6); Lymphocytes % 25.8 %; Mean Corpuscular HGB Conc 32.6 g/dL (31.6-35.5); Mean Corpuscular Hemoglobin 31.4 pg (28.0-33.3); Mean Corpuscular Volume 96.3 fL (83.0-100.0); Mean Platelet Volume 10.6 fL (9.4-12.4); Monocytes # 0.6 K/mcL (0.0-1.3); Monocytes % 7.1 %; Platelet Count 285 K/mcL (140-400); Red Blood Count 4.27 M/mcL (3.82-4.97); Red Cell Distribution Width 12.8 % (11.5-14.5); Segmented Neutrophils % 66.1 %
[2021-04-26 07:26] LABS: BUN/Creatinine Ratio 20 (6-26); Blood Urea Nitrogen 18 mg/dL (6-20); Calcium 9.6 mg/dL (8.6-10.3); Carbon Dioxide 28 mEq/L (23-29); Chloride 106 mEq/L (98-107); Glucose 114 mg/dL (70-105); Osmolality,Calculated 293 (280-300); Potassium 3.9 mEq/L (3.5-5.1); Sodium 140 mEq/L (136-145); eGFR For African Americans > 60 (> 60); eGFR For Non-African Americans > 60 (> 60)
[2021-04-26] MEDS: Aspirin Enteric Coated 81 MG Tablet PO SCH (08:17)
[2021-04-26] MEDS: Acetaminophen 325 MG TABLET PO PRN (08:28)
[2021-04-26] MEDS ORDERED: Perflutren Lipid Microsphere 1.3 ML in 0.9 % Sodium Chloride 8.7 ML IVP PRN (10:17)
[2021-04-26] MEDS: Nicotine 7 MG PATCH.TD24 TD SCH (14:32)
[2021-04-26] MEDS: tiZANidine 4 MG TABLET PO SCH (19:24)
[2021-04-26] MEDS: Melatonin 3 MG TABLET PO PRN (19:24)
[2021-04-26] MEDS ORDERED: Ketorolac 30 MG/ML VIAL IVP ONE (23:16)
[2021-04-27] MEDS: Ipratropium 1 PUFF INHALER IH SCH ×4 (04:07→19:52)
[2021-04-27] MEDS: *HR* Enoxaparin 40 MG/0.4 ML SYRINGE SQ SCH (06:05)
[2021-04-27] MEDS: Aspirin Enteric Coated 81 MG Tablet PO SCH (09:25)
[2021-04-27] MEDS: Nicotine 7 MG PATCH.TD24 TD SCH (09:25)
[2021-04-27] MEDS: tiZANidine 4 MG TABLET PO SCH (19:56)
[2021-04-27] MEDS: Melatonin 3 MG TABLET PO PRN (19:56)
[2021-04-27] MEDS ORDERED: Ketorolac 30 MG/ML VIAL IVP ONE (22:15)
[2021-04-28] MEDS: Ipratropium 1 PUFF INHALER IH SCH ×4 (03:40→20:18)
[2021-04-28] MEDS: *HR* Enoxaparin 40 MG/0.4 ML SYRINGE SQ SCH (05:46)
[2021-04-28] MEDS: Aspirin Enteric Coated 81 MG Tablet PO SCH (08:45)
[2021-04-28] MEDS: Nicotine 7 MG PATCH.TD24 TD SCH (08:46)
[2021-04-28] MEDS: amLODIPine 5 MG TABLET PO SCH (11:50)
[2021-04-28] MEDS: polyethylene glycoL 3350 17 GM POWD.PACK PO SCH (18:55)
[2021-04-28] MEDS: tiZANidine 4 MG TABLET PO SCH (20:38)
[2021-04-28] MEDS: Melatonin 3 MG TABLET PO PRN (20:39)
[2021-04-28] MEDS: Acetaminophen 325 MG TABLET PO PRN (21:39)
[2021-04-29] MEDS: Ipratropium 1 PUFF INHALER IH SCH ×4 (03:39→20:14)
[2021-04-29] MEDS: *HR* Enoxaparin 40 MG/0.4 ML SYRINGE SQ SCH (04:33)
[2021-04-29] MEDS: amLODIPine 5 MG TABLET PO SCH (08:54)
[2021-04-29] MEDS: polyethylene glycoL 3350 17 GM POWD.PACK PO SCH (08:54)
[2021-04-29] MEDS: Aspirin Enteric Coated 81 MG Tablet PO SCH (08:54)
[2021-04-29] MEDS: Nicotine 7 MG PATCH.TD24 TD SCH (08:55)
[2021-04-29] MEDS: Melatonin 3 MG TABLET PO PRN (20:18)
[2021-04-29] MEDS: tiZANidine 4 MG TABLET PO SCH (20:18)
[2021-04-29] MEDS: Acetaminophen 325 MG TABLET PO PRN (20:24)
[2021-04-30] MEDS: Ipratropium 1 PUFF INHALER IH SCH ×3 (04:24→15:50)
[2021-04-30] MEDS: *HR* Enoxaparin 40 MG/0.4 ML SYRINGE SQ SCH (05:12)
[2021-04-30] MEDS: amLODIPine 5 MG TABLET PO SCH (07:51)
[2021-04-30] MEDS: Aspirin Enteric Coated 81 MG Tablet PO SCH (07:51)
[2021-04-30] MEDS: Nicotine 7 MG PATCH.TD24 TD SCH (07:52)
[2021-04-30] MEDS: polyethylene glycoL 3350 17 GM POWD.PACK PO SCH (07:55)
[2021-04-30 10:33] VITALS: BP 111/76; PULSE 90; TEMP 97.5
[2021-04-30] MEDS: Acetaminophen 325 MG TABLET PO PRN (11:56)
[2021-04-30 15:51] VITALS: O2SAT 99
== END 2021-04-30 16:23 | DRG 45 ==
LOC: EMEROOARM 21:29 → 3BNU 21:29 → SUATTDRO 04-25 01:05 → 3BNU 04-25 01:35
PROVIDERS: ADMIT Internal Medicine; ATTEND Internal Medicine